=== PATIENT | female | born 1965 | race Caucasian/White ===

== ENCOUNTER 2024-08-29 05:19 | Emergency (ER) | payer OTHER ==
[~2024-08-29] VITALS: Ht 167.6 cm; Wt 65.9 kg
[2024-08-29] MEDS ORDERED: OMEP20CA16 PO (05:51)
[2024-08-29] MEDS ORDERED: FURO-150 PO (05:51)
[2024-08-29] MEDS ORDERED: LISI20TA28 PO (05:51)
[2024-08-29] MEDS ORDERED: ASPI81TA52 PO (05:51)
[2024-08-29] MEDS: normal saline 1000ML IV soln IVB ONE (06:52)
[2024-08-29] MEDS: ketorolac trometh 15mg/ml vial 15 MG/ML ML IV ONE ×2 (06:52→13:29)
[2024-08-29 07:57] LABS: BASOPHILS % (AUTO) 0.6 % (0-1); EOSINOPHILS % (AUTO) 0.5 % (0-6); HEMATOCRIT 37.6 % (35.0-45.0); LYMPHOCYTES # (AUTO) 1.5 X10'3 (1.1-4.8); LYMPHOCYTES % (AUTO) 27.8 % (21-51); MEAN CORPUSCULAR HEMOGLOBIN 30.4 PG (27.0-31.0); MEAN CORPUSCULAR VOLUME 94.9 FL (78-98); MEAN PLATELET VOLUME 8.2 FL (7.4-10.4); MONOCYTES # (AUTO) 0.7 X10'3 (0-0.9); MONOCYTES % (AUTO) 13.1 % (2-12); NEUTROPHILS # (AUTO) 3.1 X10'3 (1.8-7.7); PLATELET COUNT 237 X10'3 (140-440); RED BLOOD COUNT 3.96 X10'6 (4.20-5.60); RED CELL DISTRIBUTION WIDTH 13.9 % (11.5-14.5); WHITE BLOOD COUNT 5.3 X10'3 (4.5-11.0)
[2024-08-29 07:59] LABS: ALBUMIN 3.2 G/DL (3.4-5.0); ANION GAP 4 (8-16); BLOOD UREA NITROGEN 10 MG/DL (7-18); BUN/CREATININE RATIO 11.6 (10.0-20.0); CALCIUM 8.2 MG/DL (8.5-10.1); CHLORIDE 103 MMOL/L (99-107); CREATININE 0.86 MG/DL (0.40-0.90); GLUCOSE 86 MG/DL (70-104); SODIUM 136 MMOL/L (135-145); TOTAL CARBON DIOXIDE 29.4 MMOL/L (24-32); eCRCL 67 ML/MIN; eGFR 68 ML/MIN
[2024-08-29 08:56] LABS: ALANINE AMINOTRANSFERASE 20 U/L (12-78); ALBUMIN/GLOBULIN RATIO 1.1 (1.1-1.5); ALKALINE PHOSPHATASE 84 IU/L (46-116); ASPARTATE AMINO TRANSFERASE 17 U/L (10-37); BILIRUBIN,DIRECT 0.1 MG/DL (0-0.3); BILIRUBIN,TOTAL 0.2 MG/DL (0.1-1.0); TOTAL PROTEIN 6.2 G/DL (6.4-8.2)
[2024-08-29 09:31] LABS: URINE HCG NEGATIVE (NEG)
[2024-08-29 09:33] LABS: COLOR,URINE ORANGE (Yellow); UA COLLECTION TYPE URINAL
[2024-08-29 09:37] LABS: CLARITY,URINE CLEAR (Clear)
[2024-08-29 09:39] LABS: BACTERIA,URINE FEW /HPF (Neg); MUCUS STRANDS NONE SEEN /LPF (Neg); RBC,URINE 0-2 /HPF (0-2); SQUAMOUS EPITHELIAL CELL,UR FEW /LPF (FEW); WBC,URINE 0-4 /HPF (0-4)
[2024-08-29] MEDS ORDERED: iohexol 350MG/ML 100ml bottle IV ONE (11:39)
[2024-08-29] MEDS ORDERED: HYDR-3973 PO (15:47)
[2024-08-29 15:55] VITALS: BP 126/84; PULSE 92; RESP 16; TEMP 98; O2SAT 98
== END 2024-08-29 15:56 | disposition home or self-care (01) ==
LOC: ER 05:19
DX: R10.84 Generalized abdominal pain (principal); I10 Essential (primary) hypertension; Z91.040 Latex allergy status; Z79.82 Long term (current) use of aspirin; Z79.899 Other long term (current) drug therapy
CPT/HCPCS: 36415; 74176; 74177; 80048; 80076; 81001; 81025; 85025; 96361; 96374; 96376; 99285; J1885; J7030; Q9967